=== PATIENT | male | born 1975 | race Asian ===

== ENCOUNTER 2018-04-29 01:55 | Inpatient (IN) | payer OTHER ==
[2018-04-29] MEDS ORDERED: ONDANSETRON 4 MG INJ IV (06:00)
[2018-04-29] MEDS ORDERED: ALBUTEROL/IPRATROPIUM (NEB) 3 ML AMP HHN (06:00)
[2018-04-29] MEDS ORDERED: ACETAMINOPHEN 325 MG TAB PO (06:00)
[2018-04-29] MEDS ORDERED: NACL 0.9% 3 ML SYG IV (06:00)
[2018-04-29 06:48] LABS: ADD MAN DIFF? NO
[2018-04-29 06:52] LABS: WHITE BLOOD COUNT 10.4 10^3/ul (4.8-10.8)
[2018-04-29 06:52] LABS: BASOPHIL # 0.1 10^3/ul (0.0-0.1); BASOPHILS % 0.6 % (0.0-2.0); EOSINOPHILS # 0.2 10^3/ul (0.0-0.5); EOSINOPHILS % 1.7 % (0.0-7.0); HEMATOCRIT 47.7 % (42.0-52.0); HEMOGLOBIN 15.9 g/dl (14.0-18.0); LYMPHOCYTES # 2.8 10^3/ul (0.8-2.9); LYMPHOCYTES % 26.8 % (15.0-51.0); MEAN CORPUSCULAR HEMOGLOBIN 28.9 pg (29.0-33.0); MEAN CORPUSCULAR HGB CONC 33.3 g/dl (32.0-37.0); MEAN CORPUSCULAR VOLUME 86.7 fl (82.0-101.0); MONOCYTE # 0.7 10^3/ul (0.3-0.9); MONOCYTES % 6.6 % (0.0-11.0); NEUTROPHIL # 6.7 10^3/ul (1.6-7.5); NEUTROPHILS % 64.1 % (39.0-77.0); PLATELET COUNT 213 10^3/UL (140-415); RED CELL DISTRIBUTION WIDTH 12.5 % (11.5-14.5)
[2018-04-29 07:10] LABS: ALANINE AMINOTRANSFERASE 31 IU/L (13-69); ALBUMIN 4.6 g/dl (3.3-4.9); ALBUMIN/GLOBULIN RATIO 1.48; ALKALINE PHOSPHATASE 70 IU/L (42-121); ANION GAP 10 (5-13); ASPARTATE AMINO TRANSFERASE 29 IU/L (15-46); BILIRUBIN,INDIRECT 0.6 mg/dl (0-1.1); BILIRUBIN,TOTAL 0.6 mg/dl (0.2-1.3); BLOOD UREA NITROGEN 9 mg/dl (7-20); CALCIUM 9.6 mg/dl (8.4-10.2); CARBON DIOXIDE 30 mmol/L (21-31); CHLORIDE 105 mmol/L (97-110); CHOL/HDL RATIO 4.8 RATIO; CHOLESTEROL 193 mg/dl (100-200); CREATININE 0.92 mg/dl (0.61-1.24); Estimated GFR > 60 mL/min (>60); GLUCOSE 103 mg/dl (70-220); HDL CHOLESTEROL 40 mg/dl (27-67); LDL CHOLESTEROL,CALCULATED 135 mg/dl; MAGNESIUM 2.3 mg/dl (1.7-2.5); POTASSIUM 3.8 mmol/L (3.5-5.1); SODIUM 145 mmol/L (135-144); TOTAL PROTEIN 7.7 g/dl (6.1-8.1); TRIGLYCERIDES 89 mg/dl (0-149)
[2018-04-29 07:12] LABS: PROTIME 12.3 Sec (11.9-14.9)
[2018-04-29 07:13] LABS: PARTIAL THROMBOPLASTIN TIME 31.6 Sec (23.0-35.0)
[2018-04-29 07:46] LABS: HEMOGLOBIN A1C 5.6 % (0-5.9)
[2018-04-29] MEDS: ASPIRIN 81 MG TAB PO (09:10)
[2018-04-29] MEDS: HEPARIN 5,000 UNIT/1 ML VIAL SC ×2 (09:15→20:19)
[2018-04-29] MEDS: NICOTINE (14 MG/24 HR) PATCH TRANSDERM (18:00)
[2018-04-29] MEDS: ATORVASTATIN 40 MG TAB PO (20:12)
[2018-04-30 06:24] LABS: ADD MAN DIFF? NO
[2018-04-30 06:32] LABS: WHITE BLOOD COUNT 8.3 10^3/ul (4.8-10.8)
[2018-04-30 06:32] LABS: BASOPHIL # 0.1 10^3/ul (0.0-0.1); BASOPHILS % 0.6 % (0.0-2.0); EOSINOPHILS # 0.3 10^3/ul (0.0-0.5); HEMATOCRIT 46.7 % (42.0-52.0); HEMOGLOBIN 15.5 g/dl (14.0-18.0); LYMPHOCYTES # 2.6 10^3/ul (0.8-2.9); LYMPHOCYTES % 31.2 % (15.0-51.0); MEAN CORPUSCULAR HGB CONC 33.2 g/dl (32.0-37.0); MEAN CORPUSCULAR VOLUME 87.5 fl (82.0-101.0); MEAN PLATELET VOLUME 10.4 fl (7.4-10.4); MONOCYTE # 0.7 10^3/ul (0.3-0.9); MONOCYTES % 8.5 % (0.0-11.0); NEUTROPHIL # 4.7 10^3/ul (1.6-7.5); NEUTROPHILS % 56.5 % (39.0-77.0); PLATELET COUNT 190 10^3/UL (140-415); RED BLOOD COUNT 5.34 10^6/ul (4.70-6.10); RED CELL DISTRIBUTION WIDTH 12.6 % (11.5-14.5)
[2018-04-30 07:35] LABS: ANION GAP 11 (5-13); BLOOD UREA NITROGEN 17 mg/dl (7-20); CARBON DIOXIDE 30 mmol/L (21-31); CHLORIDE 101 mmol/L (97-110); CREATININE 0.98 mg/dl (0.61-1.24); Estimated GFR > 60 mL/min (>60); GLUCOSE 81 mg/dl (70-220); MAGNESIUM 2.3 mg/dl (1.7-2.5); POTASSIUM 3.8 mmol/L (3.5-5.1); SODIUM 142 mmol/L (135-144)
[2018-04-30] MEDS: ASPIRIN 81 MG TAB PO (08:48)
[2018-04-30] MEDS: NICOTINE (14 MG/24 HR) PATCH TRANSDERM (08:48)
[2018-04-30] MEDS: HEPARIN 5,000 UNIT/1 ML VIAL SC (08:57)
[2018-04-30 09:21] LABS: FOLATE 5.9 ng/ml (2.8-20.0)
[2018-04-30 15:04] LABS: RAPID PLASMA REAGIN NONREACTIVE (NR)
== END 2018-04-30 17:50 | disposition home or self-care (01) | DRG 69 ==
LOC: TEL 01:55
DX: G45.9 Transient cerebral ischemic attack, unspecified (principal); F17.210 Nicotine dependence, cigarettes, uncomplicated; I10 Essential (primary) hypertension; R53.1 Weakness; R20.0 Anesthesia of skin; Z79.82 Long term (current) use of aspirin
CPT/HCPCS: 70551; 80048; 80053; 80061; 82607; 82746; 83036; 83735; 84100; 84443; 85025; 85610; 85730; 86592; 93306; 93880; 97161